=== PATIENT | male | born 1960 | race Two or more races ===

== ENCOUNTER 2017-11-08 19:06 | Emergency (ER) | payer OTHER ==
[~2017-11-08] VITALS: Ht 190.5 cm; Wt 75.7 kg
[2017-11-08] MEDS ORDERED: KEFLEX500 MG PO (21:59)
[2017-11-08] MEDS ORDERED: NAPROSYN500 MG PO (21:59)
[2017-11-08] MEDS ORDERED: NORCO 5/3251 TABLET PO (22:40)
[2017-11-08 23:11] VITALS: BP 155/66
== END 2017-11-08 23:18 | disposition home or self-care (01) ==
LOC: EME 19:06
DX: S61.442A Puncture wound with foreign body of left hand, initial encounter (principal); W45.0XXA Nail entering through skin, initial encounter; W29.4XXA Contact with nail gun, initial encounter; Y99.0 Civilian activity done for income or pay; R20.0 Anesthesia of skin; R00.1 Bradycardia, unspecified
CPT/HCPCS: 73130; 99281; 99285; J0690; J1885; J3010; J7030